=== PATIENT | female | born 1970 | race Caucasian/White ===

== ENCOUNTER 2021-07-20 09:52 | Outpatient (CLI) | payer OTHER, SELFPAY ==
--- NOTE | 2021-07-20 12:00 | NEURO_ITS ---
Impression: # Complains of paresthesia of upper and lower extremities. # Normal nerve conduction study of upper and lower extremities. # Normal needle/EMG exam of all extremities without neurogenic changes or myotonia except bilateral EDB. # Possibility of small fiber neuropathy cannot be ruled out. Nerve Conduction Studies Anti Sensory Summary Table Stim Site NR Peak (ms) P-T Amp (?V) Site1 Site2 Delta-P (ms) Dist (cm) Girish (m/s) Left Median Anti Sensory (2-3nd Digit) Wrist 2.9 73.8 Wrist 2-3nd Digit 2.9 14.0 48 Wrist 2.8 81.0 Wrist 2-3nd Digit 2.9 14.0 48 Right Median Anti Sensory (2-3nd Digit) Wrist 3.2 78.5 Wrist 2-3nd Digit 3.2 14.0 44 Wrist 3.0 72.5 Wrist 2-3nd Digit 3.2 14.0 44 Left Radial Anti Sensory (Base 1st Digit) Wrist 1.9 32.2 Wrist Base 1st Digit 1.9 0.0 Right Radial Anti Sensory (Base 1st Digit) Wrist 2.2 28.3 Wrist Base 1st Digit 2.2 0.0 Left Sup Fibular Anti Sensory (Ant Lat Mall) 14 cm 3.4 18.2 14 cm Ant Lat Mall 3.4 16.0 47 Right Sup Fibular Anti Sensory (Ant Lat Mall) 14 cm 3.8 16.8 14 cm Ant Lat Mall 3.8 16.0 42 Left Sural Anti Sensory (Lat Mall) Calf 3.8 8.6 Calf Lat Mall 3.8 16.0 42 Right Sural Anti Sensory (Lat Mall) Calf 3.7 18.4 Calf Lat Mall 3.7 16.0 43 Left Ulnar Anti Sensory (5th Digit) Wrist 2.5 67.0 Wrist 5th Digit 2.5 14.0 56 Right Ulnar Anti Sensory (5th Digit) Wrist 2.4 92.1 Wrist 5th Digit 2.4 14.0 58 Motor Summary Table Stim Site NR Onset (ms) O-P Amp (mV) Site1 Site2 Delta-0 (ms) Dist (cm) Girish (m/s) Left Median Motor (Abd Poll Brev) Wrist 2.9 4.8 Elbow Wrist 4.4 27.0 61 Elbow 7.3 7.3 Right Median Motor (Abd Poll Brev) Wrist 2.9 8.2 Elbow Wrist 4.5 26.0 58 Elbow 7.4 4.2 Left Peroneal Motor (Vastus Med) Ankle 5.4 1.1 Popit Ankle 8.4 37.0 44 Popit 13.8 0.7 Right Peroneal Motor (Vastus Med) Ankle 5.5 1.7 Popit Ankle 7.4 36.0 49 Popit 12.9 1.8 Left Tibial Motor (Abd Laughlin Brev) Ankle 4.9 4.0 Knee Ankle 9.2 38.0 41 Knee 14.1 2.1 Right Tibial Motor (Abd Laughlin Brev) Ankle 5.1 8.2 Knee Ankle 8.7 38.0 44 Knee 13.8 7.5 Left Ulnar Motor (Abd Dig Minimi) Wrist 2.4 5.6 A Elbow Wrist 4.4 27.0 61 A Elbow 6.8 4.6 Right Ulnar Motor (Abd Dig Minimi) Wrist 2.0 7.1 A Elbow Wrist 4.5 26.0 58 A Elbow 6.5 6.4 F Wave Studies NR F-Lat (ms) L-R F-Lat (ms) Left Median (Mrkrs) (Abd Poll Brev) 26.02 0.17 Right Median (Mrkrs) (Abd Poll Brev) 25.85 0.17 Left Peroneal (Mrkrs) (EDB) 52.69 0.35 Right Peroneal (Mrkrs) (EDB) 52.34 0.35 Left Tibial (Mrkrs) (Abd Hallucis) 53.51 0.24 Right Tibial (Mrkrs) (Abd Hallucis) 53.75 0.24 Left Ulnar (Mrkrs) (Abd Dig Min) 24.57 0.34 Right Ulnar (Mrkrs) (Abd Dig Min) 24.91 0.34 EMG Side Muscle Nerve Root Ins Act Fibs Amp Dur Recrt Comment Right 1stDorInt Ulnar C8-T1 Nml Nml Nml Nml Nml Right Ext Indicis Radial (Post Int) C7-8 Nml Nml Nml Nml Nml Right Ext Digitorum Radial (Post Int) C7-8 Nml Nml Nml Nml Nml Right BrachioRad Radial C5-6 Nml Nml Nml Nml Nml Right PronatorTeres Median C6-7 Nml Nml Nml Nml Nml Right Abd Poll Brev Median C8-T1 Nml Nml Nml Nml Nml
== END 2021-07-20 09:53 | disposition home or self-care (01) ==
PROVIDERS: PCP Family Medicine; Visit Provider Family Medicine
DX: R20.2 Paresthesia of skin (principal)
CPT/HCPCS: 95886; 95910

== ENCOUNTER 2021-09-15 13:46 | Emergency (ER) | payer OTHER, SELFPAY ==
--- NOTE | ~2021-09-15 | XR_ITS ---
EXAMINATION: XR ankle RT min 3V INDICATION: Right ankle pain TECHNIQUE: Four views of the right ankle are obtained. COMPARISON: None available FINDINGS: There is no fracture, dislocation, or subluxation. There is talar beaking with some loss of the subtalar joint space. A plantar calcaneal enthesophyte is noted. IMPRESSION: 1. No acute osseous abnormality. 2. Findings consistent with talocalcaneal coalition. Reviewed, dictated and finalized at location [employer]
--- NOTE | 2021-09-15 14:07 | ED.EXTPRO ---
HPI - Extremity Problem General Chief complaint: Extremity Problem,Nontraumatic Stated complaint: rt leg pain Time Seen by Provider: 09/15/21 14:07 Source: patient Mode of arrival: ambulatory Limitations: no limitations History of Present Illness HPI Narrative: Kandy Duggan is a 50 yo female with a PMH of high blood pressure, phentermine for weight loss, high cholesterol, depression and anxiety who comes to [facility] for right lateral pain in her leg just above the right ankle. 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 EYES: Denies visual changes, redness, discharge. ENT: Denies rhinorrhea, congestion, sore throat, otalgia. CARDIOVASCULAR: Denies chest pain, palpitations, edema. RESPIRATORY: Denies dyspnea, wheezing, cough GASTROINTESTINAL: Denies abdominal pain, nausea, vomiting, diarrhea. GENITOURINARY: Denies dysuria, hematuria, abnormal discharge SKIN: Denies rash or itching. NEUROLOGIC: Denies numbness, or focal weakness. PSYCHIATRIC: Denies anxiety or depression. Right lateral ankle pain PMFSH Past Medical History Medical History (Updated 09/15/21 @ 15:06 by Radha Alexandra CNP) Anxiety Depression HLD (hyperlipidemia) Family History Family History Other Diabetes mellitus Family history of arthritis Social History Social History Smoking status: Never smoker Second hand tobacco smoke exposure: No Alcohol intake: current Comments At time of signature, I agree with nursing past medical, surgical, social and family history. There is no relevant family history pertinent to the presenting complaint. Exam Narrative: GENERAL: This is a well-nourished, well-developed patient, in mild distress. HEAD: normocephalic, atraumatic. EYES: Sclera clear/white. Vision is grossly intact. EARS: External ears normal,. Hearing grossly intact. NOSE: External nose normal without nasal discharge, nares without redness, no rhinorrhea. THROAT: Mucous membranes moist, NECK: Neck supple, CARDIOVASCULAR: Regular rate and rhythm without murmurs, gallops, or rubs. RESPIRATORY: Clear to auscultation. Breath sounds equal bilaterally. No wheezes, rales, or rhonchi. GASTROINTESTINAL: Abdomen soft, SKIN: warm, intact with no suspicious lesions or rash, good texture and turgor. NEURO: awake, alert, and oriented to person, place and time. There were no obvious focal neurologic abnormalities. Steady gait EXTREMITIES: Normal range of motion. 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 Started on ibuprofen and a muscle relaxant with referral to orthopedics if does not improve Discussed her long-term use of phentermine with patient and adverse effects on her blood pressure; states she has been taking it for the last 8 years for weight loss MDM - Extremity (Nontraumatic) Differential Diagnosis Differential diagnosis: Likely cellulitis, lower extremity edema, deep vein thrombosis of lower extremity and ot
== END 2021-09-15 15:04 | disposition home or self-care (01) ==
PROVIDERS: Emergency Provider Nurse Practitioner; PCP Family Medicine
DX: M25.571 Pain in right ankle and joints of right foot (principal); F41.9 Anxiety disorder, unspecified; F32.9 Major depressive disorder, single episode, unspecified; E78.5 Hyperlipidemia, unspecified
CPT/HCPCS: 73610; 99213; G0463

== ENCOUNTER 2021-10-19 12:58 | Outpatient (RCR) | payer OTHER, SELFPAY ==
--- NOTE | 2021-10-19 16:54 | PTOPEVAL ---
Thank you for referring Kandy Duggan to [facility] The patient is scheduled to be seen for therapy? __3__x/week for 12 visits. Please review, sign, date and return this plan of care STEPHANIE. I agree with and certify that the following plan of care is medically necessary. Referring Physician Date Admitting Provider: Attending Provider: Francisco J Mcghee, DPM Referring Provider: *PT Outpatient Evaluation Start: 10/19/21 13:14 Freq: Status: Active Protocol: Document 10/19/21 13:16 HALIMA (Rec: 10/19/21 14:02 [email or web address]) Therapy Assessment Status Assessment Status Assessment Status Evaluation Evaluation Information Problem Diagnosis right ankle sprain Onset 09/10/21 Subjective Information Pt. reports that she began Query Text:As Reported By Patient/ noticing ankle pain around the Family beginning of September. She recalls a gradual onset of pain that worsened as she was up on her feet at work. 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 She reports that her xrays were negative. She also underwent US that suggested an old ankle sprain. She describes pain just above the ankle to the front and outside. She states that pain is increased with WB activities. Pt. reports that she can walk despite her pain. She reports that she is able to complete all basic activities of living, just with discomfort. She reports that her goal for therapy is to decrease her right ankle pain. Prior Level of Function Activity Level (Last 3 Months) Occupation warehouse order picker Hand Dominance Right Activity of Daily Living Ability Independent Indoor/Home Mobility Independent Community Mobility Independent Stairs Ability Independent Functional Cognition (Planning, Shopping Independent , Taking Medications) Cooking Yes Cleaning Yes Laundry Yes Shopping Yes Driving Yes Pain Assessment Timing of Pain Assessment Timing of Pain Assessment Pre-Treatment Pain Scale Pain Scale Use
--- NOTE | 2021-12-06 15:09 | PTOPEVAL ---
Thank you for referring Kandy Duggan to [facility]. Please review, sign, date and return this plan of care STEPHANIE. I agree with and certify that the following plan of care is medically necessary. Referring Physician Date Admitting Provider: Attending Provider: Francisco J Mcghee, DPM Referring Provider: *PT Outpatient Evaluation Start: 10/19/21 13:14 Freq: Status: Active Protocol: Document 12/06/21 14:01 HALIMA (Rec: 12/06/21 15:07 [email or web address] [email or web address]) Evaluation Information Problem Diagnosis right ankle sprain Onset 09/10/21 Subjective Information Pt. reports that she is Query Text:As Reported By Patient/ feeling better, but pain is Family still present. She continues to describe pain superior and medial to the right lateral malleolus. Pain Assessment Timing of Pain Assessment Timing of Pain Assessment Pre-Treatment Pain Scale Pain Scale Used Numeric (1 - 10) Self Report Pain Assessment Right Ankle(s) Reported Pain Level 2 Greatest Pain Intensity 2 Pain Score Pain Score 2: Self Report Interventions Used Interventions Used By Clinicians Exercise,Manual Therapy Techniques Lower Extremity Range of Motion General Lower Extremity Range of Motion Gross Lower Extremity Range of Motion right ankle DF AROM 18 degrees Comments right ankle eversion AROM 22 degrees right ankle inversion AROM 45 degrees Lower Extremity Muscle Strength Testing General Lower Extremity Strength Gross Lower Extremity Strength Pt. presents with 5/5 ankle strength at all mm. groups on the right. Palpation Assessment Palpation Palpation Are of tenderness and swelling noted slight superior and medial to the lateral malleolus of the right ankle. Gait Assessment Gait Assessment Additional Ambulation Comments Pt. ambulates over level surface without deviation General Exercise General Exercises Exercise Description -resisted ankle inversion, Query Text:Record Sets, Reps, eversion, and dorsiflexion x Resistance, and Position 40 reps with red band -eccentric heel raises on step x 15 reps x 3 sets -alternating lunges x 15 bilateral Neuro Re-ed -tandem stance on foa
== END 2021-12-06 16:46 | disposition home or self-care (01) ==
LOC: CHSPT 12:58
PROVIDERS: Visit Provider Podiatrist Foot & Ankle Surgery
DX: S93.401A Sprain of unspecified ligament of right ankle, initial encounter (principal)
CPT/HCPCS: 97014; 97110; 97112; 97140; 97161; G0283

== ENCOUNTER 2022-02-05 10:29 | Outpatient (RCR) | payer OTHER, SELFPAY ==
[2022-02-05 11:50] LABS: Cortisol Random 7.05 ug/dL
[2022-02-09 05:34] LABS: Adrenocorticotropic Hormone 5 pg/mL (6-50)
[2022-02-14 12:56] LABS: PRA 0.33 ng/mL/h (0.25-5.82)
== END 2022-05-06 23:59 | disposition home or self-care (01) ==
LOC: ANHVASCINF 10:29
PROVIDERS: PCP Family Medicine; Visit Provider Nurse Practitioner
DX: I95.9 Hypotension, unspecified (principal)
CPT/HCPCS: 36415; 82024; 82088; 82533; 84244; 96372; J0834

== ENCOUNTER 2024-04-20 08:56 | Outpatient (CLI) | payer OTHER, SELFPAY ==
--- NOTE | ~2024-04-20 | MR_ITS ---
MRI of the thoracic spine Clinical History: Degenerative disc disease Technique: Axial T2-weighted and gradient images, and sagittal T1-weighted, T2-weighted, and STIR jeannine ges were acquired. Findings: There is no fracture or subluxation of the thoracic spine. Vertebral bodies maintain normal height and alignment. No suspicious bone marrow signal abnormality seen. Intervertebral disc spaces are relatively well preserved throughout the thoracic spine. No significan t disc bulge or herniation seen at any thoracic level. No spinal canal stenosis or cord compression i dentified. Neural foramina are preserved throughout the thoracic spine. No abnormal signal seen in the spinal cord. No epidural mass or collection seen. Paravertebral soft t issues are unremarkable. Impression: No significant abnormality seen. Reviewed, dictated and finalized at [facility]. Impression: No significant abnormality seen.
== END 2024-04-20 08:57 ==
LOC: GOSHIMG 08:57
PROVIDERS: PCP Family Medicine; Visit Provider Physician Assistant
DX: M51.34 Other intervertebral disc degeneration, thoracic region (principal)
CPT/HCPCS: 72146